=== PATIENT | female | born 2005 | race Two or more races ===

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

== ENCOUNTER 2024-02-16 23:44 | Emergency (ER) | payer MEDICAID ==
[~2024-02-16] VITALS: Ht 160 cm; Wt 79.0 kg
[2024-02-16 23:44] VITALS: BP 111/71; PULSE 95; RESP 16; O2SAT 10
[~2024-02-16 23:44] MED LIST: IBUP-1456 PO
[2024-02-17 00:28] LABS: Basophils # (auto) 0.1 10 ^3/uL (0-0.2); Basophils % (auto) 0.4 % (0.0-2.0); Eosinophils # (auto) 0 10 ^3/uL (0-0.8); Eosinophils % (auto) 0.2 % (0.0-7.0); Hematocrit 43.2 % (36.0-46.0); Hemoglobin 15.4 g/dL (12.2-16.2); Lymphocytes # (auto) 1.8 10 ^3/uL (0.4-5.4); Lymphocytes % (auto) 11.5 % (10.0-50.0); Mean Corpuscular Hemoglobin 31.5 pg (28.0-32.0); Mean Corpuscular Hgb Conc. 35.6 g/dL (32.0-36.0); Mean Corpuscular Volume 88.4 fL (80.0-100.0); Monocytes # (auto) 0.9 10 ^3/uL (0-1.3); Monocytes % (auto) 5.7 % (0.0-12.0); Neutrophils # (auto) 13.1 10 ^3/uL (1.6-8.6); Neutrophils % (auto) 82.2 % (37.0-80.0); Platelet Count (auto) 244 10^3/uL (140-450); Red Blood Cells 4.89 10^6/uL (4.0-5.20); Red Cell Distribution Width 13.5 % (11.8-14.3)
[2024-02-17 00:49] LABS: Alanine Aminotransferase 26 U/L (7-40); Albumin 5.2 g/dL (3.2-4.8); Alkaline Phosphatase 85 U/L (46-116); Aspartate Aminotransferase 15 U/L (13-40); BUN/Creatinine Ratio 14.5 (10.0-20.0); Blood Urea Nitrogen 11 mg/dL (9-23); Calcium 10.5 mg/dL (8.7-10.4); Carbon Dioxide 23 mmol/L (20-30); Glucose 107 mg/dL (74-106); Lipase 40 U/L (12-53); Potassium 3.8 mmol/L (3.5-5.1); Sodium 139 mmol/L (136-145)
[2024-02-17 00:50] LABS: Bilirubin, Total 0.3 mg/dL (0.2-1.0); Total Protein 8.9 g/dL (5.7-8.2)
[2024-02-17 01:29] LABS: Anion Gap 11 (5-15); Chloride 105 mmol/L (98-107)
== END 2024-02-17 05:09 | disposition left against medical advice (07) ==
LOC: ER 23:44
DX: R10.31 Right lower quadrant pain (principal); R10.2 Pelvic and perineal pain; R11.2 Nausea with vomiting, unspecified; R19.7 Diarrhea, unspecified; Z53.21 Procedure and treatment not carried out due to patient leaving prior to being seen by health care provider
CPT/HCPCS: 36415; 80053; 83690; 84702; 85025